=== PATIENT | male | born 1985 | race African-American/Black ===

== ENCOUNTER → 2016-11-18 | Outpatient (CLI) | payer OTHER ==
--- NOTE | ~2016-11-18 | US8 ---
[facility] A Service of [facility] & [facility] RADIOLOGY TEXT RESULTS PATIENT: ABEBE OCHOA LOCATION: [facility] : 85 UNIT #: [id number] AGE: [address]: Alejandro Rivera MD SEX: M ORDER DR: [id number] [place], [place] [address] [id number] MR#: [id number] Acc #: [id number] NAME: ABEBE OCHOA : 1985 SEX: M STUDY DATE/TIME: 11/18/2016 12:59 UNIT: [facility] ROOM: STUDY DESCRIPTION: US Abdominal Wall/Quadrant Attending Physician: Alejandro Rivera M.D. Ordering Physician: Alejandro Rivera M.D. Primary Care Physician: Alejandro Rivera M.D. MEDICAL IMAGING REPORT This report is preliminary unless electronic signature is present EXAM Ultrasound of the abdomen soft tissue INDICATION Two palpable areas noted on the abdomen. These are located just above the naval and below the breast bone and have been present for 2 years. TECHNIQUE Teague-scale and color Doppler sonographic images were obtained through the areas of concern. FINDINGS Within the areas of concern the patient has well circumscribed iso to perhaps mildly hyperechoic lesions which I think are most in keeping with benign lipomas. The area above the naval measures up to 2.3 x 1.7 x 0.9 cm while the area just below the sternum measures 2.1 x 0.8 x 2.9 cm. IMPRESSION Within the areas of concern the patient has a well-circumscribed iso to perhaps mildly hyperechoic nodules which I think are most in keeping with benign lipomas. Dictated by... Erica Raygoza M.D. THIS IS AN ELECTRONICALLY VERIFIED REPORT Erica Raygoza M.D. at 11/19/2016 5:13 PM EUGENE/dasha TD: 11/19/2016 11:59 JOB #: [id number] MEDICAL IMAGING REPORT [facility] A Service of [facility] & [facility] RADIOLOGY TEXT RESULTS PATIENT: ABEBE OCHOA LOCATION: [facility] #: [id number] : [birth year] UNIT #: [id number] AGE: [address]: Alejandro Rivera MD SEX: M ORDER DR: Page 1 of 1 COPY
== END | disposition home or self-care (01) ==
LOC: CGUS 12:15
DX: L98.9 Disorder of the skin and subcutaneous tissue, unspecified (principal)
CPT/HCPCS: 76705